=== PATIENT | female | born 1995 ===

== ENCOUNTER 2021-04-30 20:26 | Inpatient (IN) | payer BC ==
[2021-04-30] MEDS ORDERED: Misoprostol 200 MCG Tab PO PRN (21:14)
[2021-04-30] MEDS ORDERED: Sodium Chloride 0.9% 10 ML Syringe FLUSH PRN (21:14)
[2021-04-30] MEDS ORDERED: Water For Irrigation,Sterile 1,000 ML Container IRR PRN (21:14)
[2021-04-30] MEDS ORDERED: Sodium Chloride 0.9% 2.5 ML Syringe FLUSH PRN (21:14)
[2021-04-30] MEDS ORDERED: Sodium Chloride 0.9% 10 ML SDV IV PRN (21:14)
[2021-04-30] MEDS ORDERED: Carboprost Tromethamine 250 MCG/1 ML Amp IM PRN (21:14)
[2021-04-30] MEDS ORDERED: Ondansetron 4 MG/2 ML SDV IVPUSH PRN (21:14)
[2021-04-30] MEDS ORDERED: Lidocaine 1% 50 ML MDV INJECT PRN (21:14)
[2021-04-30] MEDS ORDERED: Butorphanol 1 MG/ML SDV IVPUSH PRN (21:14)
[2021-04-30] MEDS ORDERED: Nalbuphine 10 MG/1 ML Vial IVPUSH PRN (21:14)
[2021-04-30] MEDS ORDERED: Tranexamic Acid 1,000 MG in Sodium Chloride 0.9% 100 ML IV PRN (21:14)
[2021-04-30] MEDS ORDERED: Methylergonovine 0.2 MG/1 ML Amp IM PRN (21:14)
[2021-04-30] MEDS ORDERED: Oxytocin/0.9 % Sodium Chloride 30 UNIT/500 ML BAG IV SCH (21:15)
[2021-04-30] MEDS: Lactated Ringers 1,000 ML IV SCH ×2 (21:50→22:55)
[2021-04-30] MEDS ORDERED: Ropivacaine HCl/PF 200 ML ONE (22:51)
[2021-04-30] MEDS ORDERED: Bupivacaine 0.25% 30 ML SDV ONE (22:51)
--- NOTE | 2021-04-30 23:18 | PCM.PREANE ---
Preanesthetic Assessment - Anesthesia/Transfusion/Family Hx Anesthesia History: Prior Anesthesia Without Reaction Family History of Anesthesia Reaction: No Transfusion History: No Prior Transfusion(s) - Review of Systems General: No Symptoms Pulmonary: No Symptoms Cardiovascular: No Symptoms Gastrointestinal: No Symptoms Neurological: No Symptoms Other: Reports: None - Physical Assessment Height: 5 ft 1 in Weight: 176 lb ASA Class: 2 Mental Status: Alert & Oriented x3 Airway Class: Mallampati = 3 Dentition: Reports: Normal Dentition ROM/Head Extension: Full Lungs: Clear to Auscultation, Normal Respiratory Effort Cardiovascular: Regular Rate, Regular Rhythm - Lab Values: Laboratory Last Values WBC 10.75 K/uL (4.0-11.0) 04/30/21 21:45 RBC 4.00 M/uL (4.30-5.90) L 04/30/21 21:45 Hgb 12.8 g/dL (12.0-16.0) 04/30/21 21:45 Hct 36.6 % (36.0-46.0) 04/30/21 21:45 MCV 91.5 fL (80.0-98.0) 04/30/21 21:45 MCH 32.0 pg (27.0-32.0) 04/30/21 21:45 MCHC 35.0 g/dL (31.0-37.0) 04/30/21 21:45 RDW Std Deviation 43.5 fl (28.0-62.0) 04/30/21 21:45 RDW Coeff of [place] 13 % (11.0-15.0) 04/30/21 21:45 Plt Count 176 K/uL (150-400) 04/30/21 21:45 MPV 12.50 fL (7.40-12.00) H 04/30/21 21:45 Nucleated RBC % 0.0 /100WBC 04/30/21 21:45 Nucleated RBCs # 0 K/uL 04/30/21 21:45 Membrane Rupture POSITIVE 04/30/21 20:37 SARS-CoV-2 RNA (BAO) POSITIVE (NEGATIVE) H 04/30/21 21:53 Blood Type A POSITIVE 04/30/21 21:45 Antibody Screen NEGATIVE 04/30/21 21:45 - Allergies Allergies/Adverse Reactions: Allergies Allergy/AdvReac Type Severity Reaction Status Date / Time Penicillins Allergy Anaphylactic Verified 04/30/21 01:19 Shock - Blood Blood Available: Yes Product(s) Available: PRBC, FFP, Platelets - Anesthesia Plan Pre-Op Medication Ordered: None - Acknowledgements Anesthesia Type Planned: Epidural Pt an Appropriate Candidate for the Planned Anesthesia: Yes Alternatives and Risks of Anesthesia Discussed w Pt/Guardian: Yes Pt/Guardian Understands and Agrees with Anesthesia Plan: Yes PreAnesthesia Questionnaire HEENT History: Reports: None DIRECTOR OF AGRICULTURE History: Reports: , Spontaneous Musculoskeletal History: Reports: Other (See Below) - Infectious Disease History Infectious Disease History: Reports: MRSA - Past Surgical History HEENT Surgical History: Reports: Tonsillectomy Musculoskeletal Surgical History: Reports: Other (See Below) Other Musculoskeletal Surgeries/Procedures:: orthoscopic knee; MRSA infection post op; surgery to realign knee cap - SUBSTANCE USE Tobacco Use Status *Q: Former Tobacco User Tobacco Use Within Last Twelve Months: Cigarettes Recreational Drug Use History: No - HOME MEDS Home Medications: Home Meds Ferrous Sulfate [Iron] 1 tab PO DAILY 04/30/21 [History] Pnv,Calcium 72/Iron/Folic Acid [ Vitamin Plus Low Iron] 1 tab PO DAILY 04/30/21 [History] - CURRENT (IN HOUSE) MEDS Current Meds: Current Medications Butorphanol Tartrate (Butorphanol 1 Mg/Ml Sdv) 1 mg IVPUSH Q1H PRN PRN Reason: Pain (severe 7-10) Carboprost Tromethamine (Carboprost Tromethamine 250 Mcg/1 Ml Amp) 250 mcg IM ASDIRECTED PRN PRN Reason: Post Hemorrhage Lactated Ringer's (Ringers, Lactated) 1,000 mls @ 150 mls/hr IV ASDIRECTED PHANI Last Admin: 04/30/21 22:55 Dose: 150 mls/hr Documented by: Oxytocin/Sodium Chloride (Oxytocin 30 Unit In Ns 0.9% 500 Ml Premix) 30 unit in 500 mls @ 500 mls/hr IV TITRATE PHANI Tranexamic Acid 1,000 mg/ (Sodium Chloride) 110 mls @ 660 mls/hr IV ONETIME PRN PRN Reason: Bleeding Lidocaine HCl (Lidocaine 1% 50 Ml Mdv) 50 ml INJECT ONETIME PRN PRN Reason: Laceration repair Methylergonovine Maleate (Methylergonovine 0.2 Mg/1 Ml Amp) 0.2 mg IM ASDIRECTED PRN PRN Reason: Post Hemorrhage Misoprostol (Misoprostol 200 Mcg Tab) 200 mcg PO ONETIME PRN PRN Reason: Post Hemorrhage Nalbuphine HCl (Nalbuphine 10 Mg/1 Ml Vial) 10 mg IVPUSH Q1H PRN PRN Reason: Pain (severe 7-10) Ondansetron HCl (Ondansetron 4 Mg/2 Ml Sdv) 4 mg IVPUSH Q6H PRN PRN Reason: Nausea/Vomiting Sodium Chloride (Sodium Chloride 0.9% 10 Ml Syringe) 10 ml FLUSH ASDIRECTED PRN PRN Reason: Keep Vein Open Sodium Chloride (Sodium Chloride 0.9% 2.5 Ml Syringe) 2.5 ml FLUSH ASDIRECTED PRN PRN Reason: Keep Vein Open Sodium Chloride (Sodium Chloride 0.9% 10 Ml Sdv) 10 ml IV ASDIRECTED PRN PRN Reason: IV Use Sterile Water (Water For Irrigation,Sterile 1,000 Ml Container) 1,000 ml IRR ASDIRECTED PRN PRN Reason: delivery Discontinued Medications Bupivacaine HCl (Bupivacaine 0.25% 30 Ml Sdv) Confirm Administered Dose 30 ml .ROUTE .[employer] ONE Stop: 04/30/21 22:52 Ropivacaine (Naropin 0.2%) Confirm Administered Dose 200 mls @ as directed .ROUTE .[employer] ONE Stop: 04/30/21 22:52 - Pre-Procedure Checklist Attending Provider Aware: Yes Chart Reviewed: Yes Consent Signed: Yes Labs Reviewed: Yes VS/FHR Reviewed: Yes Patient Identification Confirmation Method: Reports: Verbal Patient Pt an Appropriate Candidate for the Planned Anesthesia: Yes Alternatives and Risks of Anesthesia Discussed w Pt/Guardian: Yes - Procedure Procedure Start Date: 04/30/21 Procedure Start Time: 22:[address]: Reports: Blood Pressure, Heart Rate, SPO2 Functional IV: Yes Safety Measures: Reports: Patient Identified, Procedure Verified, Site Verified, Procedure Time Out Patient Position: Reports: Sitting Prep: Reports: Betadine x3, Sterile Drape Local Anesthetic: Reports: Intradermal Wheal w Lidocaine 1% Regional Placement Level: Reports: L3-4 Needle: Reports: 17 g Touhy Approach: Reports: Midline Technique: Reports: SHIRA Plastic Syringe Parasthesia: Reports: None Test Dose Medication: Reports: Lidocaine 1.5% w Epinephrine 1:200,000 Test Dose Response: Reports: Negative Loading Dose Time: 23:00 Loading Dose Medication: bupivicaine 0.25% 10cc Loading Dose Patient Position: sitting Continuous Infusion Start Time: 23:05 Continuous Infusion Medication: ropivicaine 0.2% Continuous Infusion Rate: 16 Continuous Infusion PCS Bolus Option: 4 VS and FHR Monitored in Unit Post Placement: Yes Procedure End Date: 04/30/21 Procedure End Time: 23:56
[2021-05-01] MEDS ORDERED: Oxytocin/0.9 % Sodium Chloride 30 UNIT/500 ML BAG IV SCH (02:45)
[2021-05-01] MEDS: Lactated Ringers 1,000 ML IV SCH (06:15)
[2021-05-01] MEDS ORDERED: Sodium Chloride 0.9% 1,000 ML IRR PRN (06:26)
[2021-05-01] MEDS ORDERED: Ropivacaine HCl/PF 200 ML ONE (12:17)
[2021-05-01] MEDS ORDERED: Benzocaine/Menthol 20%-0.5% Spray 78 GM Cannister TOP PRN (13:36)
[2021-05-01] MEDS ORDERED: Acetaminophen 500 MG Tab PO PRN (13:36)
[2021-05-01] MEDS ORDERED: Bisacodyl 10 MG Supp RECTAL PRN (13:36)
[2021-05-01] MEDS ORDERED: Ibuprofen 400 MG Tab PO PRN (13:36)
[2021-05-01] MEDS ORDERED: Lanolin 100% Cream 7 GM Tube TOP PRN (13:36)
[2021-05-01] MEDS ORDERED: Docusate Sodium 100 MG Cap PO PRN (13:36)
[2021-05-01] MEDS ORDERED: oxyCODONE 5 MG Tab PO PRN (13:36)
[2021-05-01] MEDS: Ibuprofen 800 MG Tab PO PRN ×2 (16:28→23:21)
[2021-05-01] MEDS: Witch Hazel Medicated Pads 40/Jar TOP PRN (16:34)
[2021-05-01] MEDS: Acetaminophen 500 MG Tab PO PRN (20:33)
--- NOTE | 2021-05-02 00:46 | OR ---
SURGEON: Luke Price MD DATE OF PROCEDURE: 05/01/2021 INDICATION FOR PROCEDURES: A 26-year-old, G2, P 0-0-1-0 at 40 weeks and 2 days, admitted with spontaneous rupture membranes and early labor. She presented with contractions that became stronger at home and had rupture of membranes with clear fluid. She was 4 to 5 cm on admission. Her was complicated by limited care initially while living in [place]. She initiated care at [facility] at 28 weeks. She was a cigarette smoker and did quit around that time as well. She initially had infection with chlamydia that was treated along with her partner. She made progress on her own to 6 cm, but did not make further progress after a few hours. Therefore, Pitocin was started for augmentation of labor. She is GBS negative. After the Pitocin was started, she progressed to 7 cm. The baby began to have early decelerations and variable decelerations, which responded with repositioning and oxygen. An IUPC was placed, and amnioinfusion started. She did receive an epidural with good pain control. She continued to slowly make progress and became fully dilated with the urge to push. PREOPERATIVE DIAGNOSES: 1. Condon intrauterine at 40 weeks and 2 days. 2. Category II tracing. 3. Active labor. POSTOPERATIVE DIAGNOSES: 1. Condon intrauterine at 40 weeks and 2 days. 2. Category II tracing. 3. Active labor. PROCEDURE PERFORMED: Normal spontaneous vaginal delivery, repair of first-degree laceration. ANESTHESIOLOGIST: Dr. Ruperto Rincon. ANESTHESIA: Epidural. FINDINGS: Viable female . scores of 8 and 9. weight of 3530g. The baby had have meconium-stained fluid. ESTIMATED BLOOD LOSS: 300 mL. DESCRIPTION OF PROCEDURE: The patient pushed with contractions for about 2 hours with good descent. The baby initially had frequent decelerations to the 90s while pushing and after contractions, but as she continued to push the decelerations did improve and would recover to baseline very quickly. The head delivered in occiput anterior position over an intact perineum, restituted ROT, anterior shoulder delivered easily followed by posterior shoulder and remaining body. No nuchal cord was noted. The baby was placed on maternal chest and evaluated by awaiting nursery staff. The baby was pink, crying, and moving all extremities immediately after delivery. The umbilical cord was clamped and cut after about 3 minutes and no longer pulsating. Umbilical cord gases were obtained. The placenta was removed with gentle traction on the umbilical cord. It was examined to be intact with 3-vessel cord. The vagina and perineum were examined. She did have first-degree laceration that extended superficially along both labia. The lacerations were repaired with 3-0 Vicryl in the usual fashion. Hemostasis was confirmed after the repair. She had a moderate amount of bleeding while she was pushing, and she did have some gushes of blood as well, which did improve with fundal massage. The fundus was firm at and below the umbilicus and the bleeding improved. The patient tolerated the procedure well, was given care instructions. NEMO GRAHAM /[id number] MTDD
[2021-05-02] MEDS: Acetaminophen 500 MG Tab PO PRN ×2 (04:55→13:24)
[2021-05-02] MEDS: Witch Hazel Medicated Pads 40/Jar TOP PRN (05:59)
--- NOTE | 2021-05-02 08:20 | PCM.PNPP ---
- General Info Date of Service: 05/02/21 Functional Status: Reports: Pain Controlled, Tolerating Diet, Ambulating, Urinating, Other (Bleeding light. Denies any new cough, fever, headache or SOB.) - Review of Systems General: Reports: No Symptoms HEENT: Reports: No Symptoms Pulmonary: Reports: No Symptoms Cardiovascular: Reports: No Symptoms Gastrointestinal: Reports: No Symptoms Genitourinary: Reports: No Symptoms Musculoskeletal: Reports: No Symptoms Skin: Reports: No Symptoms Neurological: Reports: No Symptoms Psychiatric: Reports: No Symptoms - Patient Data Vital Signs - Most Recent: Last Vital Signs Temp 36.7 C 05/02/21 05:00 Pulse 74 05/02/21 05:00 Resp 17 05/02/21 05:00 BP 125/65 05/02/21 05:00 Pulse Ox 98 05/02/21 05:00 Weight - Most Recent: 176 lb Lab Results - Last 24 Hours: Laboratory Results - last 24 hr 05/02/21 Range/Units 07:12 Hgb 10.8 L (12.0-16.0) g/dL Hct 31.3 L (36.0-46.0) % Med Orders - Current: Current Medications Acetaminophen (Acetaminophen 500 Mg Tab) 500 mg PO Q4H PRN PRN Reason: Pain (mild 1-3) Acetaminophen (Acetaminophen 500 Mg Tab) 1,000 mg PO Q4H PRN PRN Reason: Pain (mild 1-3) Last Admin: 05/02/21 04:55 Dose: 1,000 mg Documented by: Benzocaine/Menthol (Benzocaine/Menthol 20%-0.5% [place] 78 Gm Cannister) 78 gm TOP ASDIRECTED PRN PRN Reason: Perineal Comfort Measure Last Admin: 05/01/21 16:33 Dose: 1 canister Documented by: Bisacodyl (Bisacodyl 10 Mg Supp) 10 mg RECTAL ONETIME PRN PRN Reason: Constipation Docusate Sodium (Docusate Sodium 100 Mg Cap) 100 mg PO Q12H PRN PRN Reason: Constipation Emollient Ointment (Lanolin 100% Cream 7 Gm Tube) 0 gm TOP ASDIRECTED PRN PRN Reason: Sore Nipples Last Admin: 05/01/21 16:37 Dose: 1 tube Documented by: Oxytocin/Sodium Chloride (Oxytocin 30 Unit In Ns 0.9% 500 Ml Premix) 30 unit in 500 mls @ 2 mls/hr IV TITRATE PHANI; Protocol Last Admin: 05/01/21 03:00 Dose: 2 munits/min, 2 mls/hr Documented by: Sodium Chloride (Sodium Chloride 0.9%) 1,000 mls @ 500 mls/hr IRR ASDIRECTED PRN PRN Reason: Other Last Infusion: 05/01/21 07:19 Dose: 50 mls/hr Documented by: Ibuprofen (Ibuprofen 400 Mg Tab) 400 mg PO Q4H PRN PRN Reason: Pain (mild 1-3) Ibuprofen (Ibuprofen 800 Mg Tab) 800 mg PO Q6H PRN PRN Reason: Cramping Last Admin: 05/01/21 23:21 Dose: 800 mg Documented by: Oxycodone HCl (Oxycodone 5 Mg Tab) 5 mg PO Q2H PRN PRN Reason: Pain (severe 7-10) Sodium Chloride (Sodium Chloride 0.9% 10 Ml Syringe) 10 ml FLUSH ASDIRECTED PRN PRN Reason: Keep Vein Open Sodium Chloride (Sodium Chloride 0.9% 2.5 Ml Syringe) 2.5 ml FLUSH ASDIRECTED PRN PRN Reason: Keep Vein Open Sodium Chloride (Sodium Chloride 0.9% 10 Ml Sdv) 10 ml IV ASDIRECTED PRN PRN Reason: IV Use Witch Rj (Witch Rj Medicated Pads 40/Jar) 1 pad TOP ASDIRECTED PRN PRN Reason: comfort care Last Admin: 05/02/21 05:59 Dose: 1 pad Documented by: Discontinued Medications Bupivacaine HCl (Bupivacaine 0.25% 30 Ml Sdv) Confirm Administered Dose 30 ml .ROUTE .[employer] ONE Stop: 04/30/21 22:52 Last Admin: 05/01/21 00:38 Dose: Not Given Documented by: Butorphanol Tartrate (Butorphanol 1 Mg/Ml Sdv) 1 mg IVPUSH Q1H PRN PRN Reason: Pain (severe 7-10) Carboprost Tromethamine (Carboprost Tromethamine 250 Mcg/1 Ml Amp) 250 mcg IM ASDIRECTED PRN PRN Reason: Post Hemorrhage Lactated Ringer's (Ringers, Lactated) 1,000 mls @ 150 mls/hr IV ASDIRECTED PHANI Last Admin: 05/01/21 06:15 Dose: 150 mls/hr Documented by: Oxytocin/Sodium Chloride (Oxytocin 30 Unit In Ns 0.9% 500 Ml Premix) 30 unit in 500 mls @ 500 mls/hr IV TITRATE PHANI Tranexamic Acid 1,000 mg/ (Sodium Chloride) 110 mls @ 660 mls/hr IV ONETIME PRN PRN Reason: Bleeding Ropivacaine (Naropin 0.2%) Confirm Administered Dose 200 mls @ as directed .ROUTE .[employer] ONE Stop: 04/30/21 22:52 Last Admin: 05/01/21 00:38 Dose: Not Given Documented by: Ropivacaine (Naropin 0.2%) Confirm Administered Dose 200 mls @ as directed .ROUTE .[employer] ONE Stop: 05/01/21 12:18 Last Admin: 05/02/21 07:17 Dose: Not Given Documented by: Lidocaine HCl (Lidocaine 1% 50 Ml Mdv) 50 ml INJECT ONETIME PRN PRN Reason: Laceration repair Methylergonovine Maleate (Methylergonovine 0.2 Mg/1 Ml Amp) 0.2 mg IM ASDIRECTED PRN PRN Reason: Post Hemorrhage Misoprostol (Misoprostol 200 Mcg Tab) 200 mcg PO ONETIME PRN PRN Reason: Post Hemorrhage Nalbuphine HCl (Nalbuphine 10 Mg/1 Ml Vial) 10 mg IVPUSH Q1H PRN PRN Reason: Pain (severe 7-10) Ondansetron HCl (Ondansetron 4 Mg/2 Ml Sdv) 4 mg IVPUSH Q6H PRN PRN Reason: Nausea/Vomiting Sterile Water (Water For Irrigation,Sterile 1,000 Ml Container) 1,000 ml IRR ASDIRECTED PRN PRN Reason: delivery - Interaction Disposition, : [place] at Bedside Support Person: Significant Other - Recovery Exam Fundal Tone: Firm Fundal Level: 1 Fingerbreadths Below Umbilicus Fundal Placement: Midline Lochia Amount: Scant Lochia Color: Rubra/Red Perineum Description: Intact, Minimal Bruising/Swelling Episiotomy/Laceration: None Bladder Status: Voiding Urinary Elimination: Voided - Exam General: Alert, Oriented, Cooperative, No Acute Distress HEENT: Pupils Equal, Pupils Reactive, EOMI Neck: Supple, Trachea Midline, No JVD Lungs: Normal Respiratory Effort GI/Abdominal Exam: Soft, Non-Tender, No Distention Extremities: Normal Inspection, Normal Range of Motion, Non-Tender, No Pedal Edema Skin: Warm, Dry, Intact Wound/Incisions: Healing Well Neurological: No New Focal Deficit Psy/Mental Status: Alert, Normal Affect, Normal Mood - Problem List Review Problem List Initiated/Reviewed/Updated: Yes - My Orders Last 24 Hours: My Active Orders 05/01/21 13:36 Patient Status [ADT] Routine May Shower [RC] ASDIRECTED Acetaminophen [Tylenol Extra Strength] 1,000 mg PO Q4H PRN Acetaminophen [Tylenol Extra Strength] 500 mg PO Q4H PRN Benzocaine/Menthol [Dermoplast Pain Relief 20%-0.5% [place]] 78 gm TOP ASDIRECTED PRN Docusate Sodium [Colace] 100 mg PO Q12H PRN Ibuprofen [Motrin] 400 mg PO Q4H PRN Ibuprofen [Motrin] 800 mg PO Q6H PRN Lanolin [Lansinoh HPA] See Dose Instructions TOP ASDIRECTED PRN bisacodyL [Dulcolax] 10 mg RECTAL ONETIME PRN oxyCODONE 5 mg PO Q2H PRN witch Rj [Tucks] 1 pad TOP ASDIRECTED PRN Assess Lochia [WOMSER] Per Unit Routine Assess Uterine Involution [WOMSER] Per Unit Routine Breast Pump [WOMSER] Per Unit Routine Peripheral IV Discontinue [OM.PC] Routine 05/01/21 13:37 Ice Therapy [OM.PC] Per Unit Routine Perineal Care [OM.PC] Per Unit Routine Sitz Bath [OM.PC] Per Unit Routine 05/01/21 Dinner Regular Diet [DIET] - Assessment Assessment:: 26yo PPD1 s/p , stable and recovering well. - Plan Plan:: Vitals stable Hgb stable, bleeding light, advised to continue PNV Ambulating and tolerating PO Stable for discharge home, reviewed care instructions
[2021-05-02] MEDS: Ibuprofen 800 MG Tab PO PRN ×2 (08:27→19:39)
[2021-05-03] MEDS: Acetaminophen 500 MG Tab PO PRN ×2 (01:01→08:00)
[2021-05-03] MEDS: Ibuprofen 800 MG Tab PO PRN ×2 (04:34→12:34)
[2021-05-03] MEDS: Witch Hazel Medicated Pads 40/Jar TOP PRN (05:53)
--- NOTE | 2021-05-03 08:57 | PCM.PNPP ---
- General Info Date of Service: 05/03/21 Functional Status: Reports: Pain Controlled, Tolerating Diet, Ambulating, Urinating - Review of Systems General: Reports: No Symptoms HEENT: Reports: No Symptoms Pulmonary: Reports: No Symptoms Cardiovascular: Reports: No Symptoms Gastrointestinal: Reports: No Symptoms Genitourinary: Reports: No Symptoms Musculoskeletal: Reports: No Symptoms Skin: Reports: No Symptoms Neurological: Reports: No Symptoms Psychiatric: Reports: No Symptoms - Patient Data Vital Signs - Most Recent: Last Vital Signs Temp 36.6 C 05/03/21 04:51 Pulse 68 05/03/21 04:51 Resp 17 05/03/21 04:51 BP 116/63 05/03/21 04:51 Pulse Ox 98 05/03/21 04:51 Weight - Most Recent: 176 lb Med Orders - Current: Current Medications Acetaminophen (Acetaminophen 500 Mg Tab) 500 mg PO Q4H PRN PRN Reason: Pain (mild 1-3) Acetaminophen (Acetaminophen 500 Mg Tab) 1,000 mg PO Q4H PRN PRN Reason: Pain (mild 1-3) Last Admin: 05/03/21 08:00 Dose: 1,000 mg Documented by: Benzocaine/Menthol (Benzocaine/Menthol 20%-0.5% [place] 78 Gm Cannister) 78 gm TOP ASDIRECTED PRN PRN Reason: Perineal Comfort Measure Last Admin: 05/01/21 16:33 Dose: 1 canister Documented by: Bisacodyl (Bisacodyl 10 Mg Supp) 10 mg RECTAL ONETIME PRN PRN Reason: Constipation Docusate Sodium (Docusate Sodium 100 Mg Cap) 100 mg PO Q12H PRN PRN Reason: Constipation Emollient Ointment (Lanolin 100% Cream 7 Gm Tube) 0 gm TOP ASDIRECTED PRN PRN Reason: Sore Nipples Last Admin: 05/01/21 16:37 Dose: 1 tube Documented by: Oxytocin/Sodium Chloride (Oxytocin 30 Unit In Ns 0.9% 500 Ml Premix) 30 unit in 500 mls @ 2 mls/hr IV TITRATE PHANI; Protocol Last Admin: 05/01/21 03:00 Dose: 2 munits/min, 2 mls/hr Documented by: Sodium Chloride (Sodium Chloride 0.9%) 1,000 mls @ 500 mls/hr IRR ASDIRECTED PRN PRN Reason: Other Last Infusion: 05/01/21 07:19 Dose: 50 mls/hr Documented by: Ibuprofen (Ibuprofen 400 Mg Tab) 400 mg PO Q4H PRN PRN Reason: Pain (mild 1-3) Ibuprofen (Ibuprofen 800 Mg Tab) 800 mg PO Q6H PRN PRN Reason: Cramping Last Admin: 05/03/21 04:34 Dose: 800 mg Documented by: Oxycodone HCl (Oxycodone 5 Mg Tab) 5 mg PO Q2H PRN PRN Reason: Pain (severe 7-10) Sodium Chloride (Sodium Chloride 0.9% 10 Ml Syringe) 10 ml FLUSH ASDIRECTED PRN PRN Reason: Keep Vein Open Sodium Chloride (Sodium Chloride 0.9% 2.5 Ml Syringe) 2.5 ml FLUSH ASDIRECTED PRN PRN Reason: Keep Vein Open Sodium Chloride (Sodium Chloride 0.9% 10 Ml Sdv) 10 ml IV ASDIRECTED PRN PRN Reason: IV Use Witch Basia (Witch Basia Medicated Pads 40/Jar) 1 pad TOP ASDIRECTED PRN PRN Reason: comfort care Last Admin: 05/03/21 05:53 Dose: 1 pad Documented by: Discontinued Medications Bupivacaine HCl (Bupivacaine 0.25% 30 Ml Sdv) Confirm Administered Dose 30 ml .ROUTE .[facility] ONE Stop: 04/30/21 22:52 Last Admin: 05/01/21 00:38 Dose: Not Given Documented by: Butorphanol Tartrate (Butorphanol 1 Mg/Ml Sdv) 1 mg IVPUSH Q1H PRN PRN Reason: Pain (severe 7-10) Carboprost Tromethamine (Carboprost Tromethamine 250 Mcg/1 Ml Amp) 250 mcg IM ASDIRECTED PRN PRN Reason: Post Hemorrhage Lactated Ringer's (Ringers, Lactated) 1,000 mls @ 150 mls/hr IV ASDIRECTED PHANI Last Admin: 05/01/21 06:15 Dose: 150 mls/hr Documented by: Oxytocin/Sodium Chloride (Oxytocin 30 Unit In Ns 0.9% 500 Ml Premix) 30 unit in 500 mls @ 500 mls/hr IV TITRATE PHANI Tranexamic Acid 1,000 mg/ (Sodium Chloride) 110 mls @ 660 mls/hr IV ONETIME PRN PRN Reason: Bleeding Ropivacaine (Naropin 0.2%) Confirm Administered Dose 200 mls @ as directed .ROUTE [employer] ONE Stop: 04/30/21 22:52 Last Admin: 05/01/21 00:38 Dose: Not Given Documented by: Ropivacaine (Naropin 0.2%) Confirm Administered Dose 200 mls @ as directed .ROUTE .[employer] ONE Stop: 05/01/21 12:18 Last Admin: 05/02/21 07:17 Dose: Not Given Documented by: Lidocaine HCl (Lidocaine 1% 50 Ml Mdv) 50 ml INJECT ONETIME PRN PRN Reason: Laceration repair Methylergonovine Maleate (Methylergonovine 0.2 Mg/1 Ml Amp) 0.2 mg IM ASDIRECTED PRN PRN Reason: Post Hemorrhage Misoprostol (Misoprostol 200 Mcg Tab) 200 mcg PO ONETIME PRN PRN Reason: Post Hemorrhage Nalbuphine HCl (Nalbuphine 10 Mg/1 Ml Vial) 10 mg IVPUSH Q1H PRN PRN Reason: Pain (severe 7-10) Ondansetron HCl (Ondansetron 4 Mg/2 Ml Sdv) 4 mg IVPUSH Q6H PRN PRN Reason: Nausea/Vomiting Sterile Water (Water For Irrigation,Sterile 1,000 Ml Container) 1,000 ml IRR ASDIRECTED PRN PRN Reason: delivery - Interaction Infant Disposition, : [facility] at Bedside Support Person: Significant Other - Recovery Exam Fundal Tone: Firm Fundal Level: 2 Fingerbreadths Below Umbilicus Fundal Placement: Midline Lochia Amount: Scant Lochia Color: Rubra/Red Perineum Description: Other (see below) Other Perinuem Description: laceration Episiotomy/Laceration: Approximated Bladder Status: Voiding Urinary Elimination: Voided - Exam General: Alert, Oriented, Cooperative, No Acute Distress HEENT: Pupils Equal, Pupils Reactive Neck: Supple, Trachea Midline Lungs: Clear to Auscultation GI/Abdominal Exam: Soft, Non-Tender, No Distention Extremities: Normal Inspection, Normal Range of Motion, Non-Tender, No Pedal Edema Skin: Warm, Dry, Intact Neurological: No New Focal Deficit Psy/Mental Status: Alert, Normal Affect, Normal Mood - Problem List Review Problem List Initiated/Reviewed/Updated: Yes - My Orders Last 24 Hours: My Active Orders 05/03/21 08:55 Ready for Discharge [RC] PER UNIT ROUTINE - Assessment Assessment:: 26yo PPD2 s/p , stable and recovering well. - Plan Plan:: Vitals stable Hgb stable, bleeding light, advised to continue PNV Ambulating and tolerating PO Baby doing better today with improvement in bilirubin Stable for discharge home today, reviewed care instructions
--- NOTE | 2021-05-04 14:35 | PCM48HPAN ---
Post Anesthesia Note - EVALUATION WITHIN 48HRS OF ANESTHETIC Vital Signs in Normal Range: Yes Patient Participated in Evaluation: Yes Respiratory Function Stable: Yes Airway Patent: Yes Cardiovascular Function Stable: Yes Hydration Status Stable: Yes Pain Control Satisfactory: Yes Nausea and Vomiting Control Satisfactory: Yes Mental Status Recovered: Yes Vital Signs: Last Vital Signs Temp 98.2 F 05/03/21 08:00 Pulse 79 05/03/21 08:00 Resp 15 05/03/21 08:00 BP 125/79 05/03/21 08:00 Pulse Ox 99 05/03/21 08:00
== END 2021-05-03 14:40 | disposition home or self-care (01) | DRG 560 ==
LOC: MW.OBCHECK 20:26 → MW.OB 20:27 → MW.OBCHECK 21:14 → OBSVTOIN 05-01 12:36 → MW.OB 05-01 16:30
PROVIDERS: ADMIT Obstetrics & Gynecology; ATTEND Obstetrics & Gynecology
PROC: 10E0XZZ Delivery of Products of Conception, External Approach (ICD-10-PCS; principal; 2021-05-01)
PROC: 10H07YZ Insertion of Other Device into Products of Conception, Via Natural or Artificial Opening (ICD-10-PCS; 2021-05-01)
PROC: 0HQ9XZZ Repair Perineum Skin, External Approach (ICD-10-PCS; 2021-05-01)
DX: O48.0 Post-term pregnancy (principal); O98.52 Other viral diseases complicating childbirth; U07.1 COVID-19; O70.0 First degree perineal laceration during delivery; Z37.0 Single live birth; Z88.0 Allergy status to penicillin; Z87.891 Personal history of nicotine dependence; Z3A.40 40 weeks gestation of pregnancy
CPT/HCPCS: 01967; 36415; 51702; 59025; 59409; 84112; 85014; 85018; 85027; 86592; 86850; 86900; 86901; A9270-GY; J2590; J2795; J3490; J7120; U0002